=== PATIENT | female | born 1985 | race African-American/Black ===

== ENCOUNTER → 2023-10-05 14:40 | Outpatient (REF) | payer OTHER, SELFPAY ==
[2023-10-06 15:58] LABS: Rubeola (Measles) IgG Equivocal; Varicella Zoster IgG (VZV) Positive
[2023-10-06 19:40] LABS: Rubella Positive
[2023-10-06 19:59] LABS: Hepatitis B Surface Antibody Positive
[2023-10-07 11:18] LABS: Mumps Virus IgG Positive
== END ==
LOC: OHS 14:40
PROVIDERS: ATTENDING PHYSICIAN Nurse Practitioner Family
DX: Z23 Encounter for immunization (principal)
CPT/HCPCS: 36415; 86706; 86735; 86762; 86765; 86787